=== PATIENT | female | born 1975 | race Two or more races ===

== ENCOUNTER 2016-08-29 23:15 | Emergency (ER) | payer SELFPAY ==
[2016-08-29] MEDS ORDERED: NO MEDICATIONS (23:24)
[2016-08-30 00:05] LABS: URINE SOURCE CLEAN CATCH
[2016-08-30 00:10] LABS: URINE APPEARANCE CLEAR; URINE BILIRUBIN NEG (NEG); URINE BLOOD TRACE-LYSED (NEG); URINE COLOR YELLOW; URINE GLUCOSE NEG (NORM); URINE KETONE NEG (NEG); URINE LEUKOCYTE ESTERASE 2+ (NEG); URINE NITRATE NEG (NEG); URINE PH 6.5 (5-8); URINE PROTEIN NEG (NEG); URINE UROBILINOGEN 0.2 MG/DL (NORM)
[2016-08-30 00:15] LABS: MICRO INDICATED? YES
[2016-08-30 00:18] LABS: URINE RBC 0-2 /[HPF] (0-2)
[2016-08-30 00:19] LABS: CULTURE INDICATED? YES; URINE BACTERIA NEG (NEG); URINE MUCUS PRESENT; URINE SQUAMOUS EPITHELIAL CELL OCCAS /[HPF]; URINE WBC 25-50 /[HPF] (0-5)
== END 2016-08-30 01:13 | disposition home or self-care (01) ==
LOC: SED 23:15
PROVIDERS: Student in an Organized Health Care Education/Training Program
DX: F41.9 Anxiety disorder, unspecified (principal)
CPT/HCPCS: 81003; 84703; 87086; 99283